=== PATIENT | female | born 1950 | race American Indian/Alaskan Native ===

== ENCOUNTER 2017-04-01 11:29 | Emergency (ER) | payer OTHER ==
[2017-04-01 12:12] VITALS: BP 155/96
--- NOTE | 2017-04-01 12:13 | Emergency Department Report ---
Chief Complaint: Extremity Injury, Lower Stated Complaint: SIDE/LEG PAIN Time Seen by Provider: 04/01/17 12:04 - HPI History of Present Illness: PT c/o pain from her R hip that radiates down her leg. onset, Saturday. PT states she felt a knot on her leg. PT states she called a nurse line and was told to go to the ED for possible appendicitis. - ROS Review of Systems: - abd pain -n/v - fever - Exam Physical Exam: abd is soft and non tender. R calf not ttp MSE screening note: Focused history and physical exam performed. Due to findings the following was ordered: ED Disposition for MSE Condition: Stable
--- NOTE | 2017-04-01 13:13 | Emergency Department Report ---
ED Extremity Problem HPI - General Chief complaint: Extremity Injury, Lower Stated complaint: SIDE/LEG PAIN Time Seen by Provider: 04/01/17 12:04 Source: patient Mode of arrival: Wheelchair Limitations: No Limitations, Physical Limitation - History of Present Illness Initial comments: Patient reports pain in the right hip that radiates down the right leg with cramps. Also, complains of lower right leg pain not aggravated by anything in particular that started two days ago Complaint: extremity pain (right hip and lower leg) Onset/Timin -: days(s) Location: left, lower extremity History of Same: No -: Yes arthralgia Radiation: proximal Severity scale (0 -10): 10 Quality: aching Consistency: constant Improves with: nothing Worsens with: weight bearing, walking, exertion, rest Associated Symptoms: denies other symptoms. denies: chest pain, shortness of breath, fever, myalgias, arthralgias - Related Data Previous Rx's Medication Instructions Recorded Last Taken Type Gabapentin [Neurontin] 100 mg PO Q8HR #15 capsule 04/01/17 Unknown Rx Ibuprofen [Motrin 600 MG tab] 600 mg PO Q8H PRN #30 tablet 04/01/17 Unknown Rx Allergies Allergy/AdvReac Type Severity Reaction Status Date / Time No Known Allergies Allergy Unverified 04/01/17 12:08 ED Review of Systems ROS: Stated complaint: SIDE/LEG PAIN Other details as noted in HPI Constitutional: denies: chills, diaphoresis, fever, malaise, weakness Eyes: denies: eye pain ENT: denies: ear pain, throat pain Respiratory: denies: cough, orthopnea, shortness of breath, SOB with exertion, SOB at rest, stridor, wheezing Cardiovascular: denies: chest pain, palpitations, dyspnea on exertion, orthopnea , edema, syncope, paroxysmal nocturnal dyspnea Gastrointestinal: denies: abdominal pain, nausea, vomiting, diarrhea, constipation Musculoskeletal: arthralgia (right hip and lower leg). denies: back pain, joint swelling, myalgia Skin: denies: rash, lesions, change in color, change in hair/nails, pruritus Neurological: denies: headache, weakness, numbness, paresthesias, confusion Psychiatric: denies: anxiety, depression Hematological/Lymphatic: denies: easy bleeding ED Past Medical Hx - Past Medical History Hx Hypertension: Yes Hx Kidney Stones: Yes - Surgical History Past Surgical History?: No - Social History Smoking Status: Never Smoker Substance Use Type: Alcohol - Medications Home Medications: Home Medications Medication Instructions Recorded Confirmed Last Taken Type Gabapentin [Neurontin] 100 mg PO Q8HR #15 capsule 04/01/17 Unknown Rx Ibuprofen [Motrin 600 MG tab] 600 mg PO Q8H PRN #30 tablet 04/01/17 Unknown Rx ED Physical Exam - General Limitations: No Limitations, Physical Limitation General appearance: alert, in no apparent distress - Head Head exam: Present: atraumatic, normocephalic, normal inspection - ENT ENT exam: Present: normal exam, normal orophraynx, mucous membranes moist. Absent: mucous membranes dry - Neck Neck exam: Present: normal inspection, full ROM. Absent: tenderness, meningismus, lymphadenopathy, thyromegaly - Respiratory Respiratory exam: Present: normal lung sounds bilaterally. Absent: respiratory distress, wheezes, rales, rhonchi, stridor, chest wall tenderness, accessory muscle use, decreased breath sounds, prolonged expiratory - Cardiovascular Cardiovascular Exam: Present: regular rate, normal rhythm, normal heart sounds. Absent: systolic murmur, diastolic murmur, rubs, gallop - GI/Abdominal GI/Abdominal exam: Present: soft, normal bowel sounds. Absent: distended, tenderness, guarding, rebound, rigid - Extremities Exam Extremities exam: Present: normal inspection, full ROM, normal capillary refill. Absent: tenderness, pedal edema, joint swelling - Expanded Lower Extremity Exam Right Hip exam: Present: normal inspection, full ROM. Absent: tenderness, swelling, abrasion, laceration, ecchymosis, deformity, crepidus, dislocation, erythema, external rotation, internal rotation, shortening, pelvic stability Upper Leg exam: Present: normal inspection, full ROM. Absent: tenderness, swelling Knee exam: Present: normal inspection, full ROM, full knee extension. Absent: tenderness, swelling, abrasion, laceration, ecchymosis, deformity, crepidus, pain w/ pronation/supination, posterior draw sign, pain/laxity with valgus, pain /laxity with varus Lower Leg exam: Present: full ROM, tenderness. Absent: swelling, abrasion, laceration, ecchymosis, deformity, crepidus, dislocation, erythema, palpable cord, Génesis's sign Ankle exam: Present: normal inspection, full ROM. Absent: tenderness, swelling , abrasion, laceration, ecchymosis, deformity Foot/Toe exam: Present: normal inspection, full ROM. Absent: tenderness, swelling, abrasion, laceration, ecchymosis, deformity, crepidus, dislocation, erythema, amputation, puncture wound, foreign body, calcaneal tenderness, tenderness at base of 5th metatarsal, nail avulsion Neuro vascular tendon exam: Present: no vascular compromise, significant pain with passive ROM of distal joint. Absent: pulse deficit, abnormal cap refill, motor deficit, sensory deficit, tendon deficit, extremity cold to touch, pallor , abnormal 2-point discrimination, decreased fine/light touch, foot drop, peroneal nerve deficit Gait: Positive: observed and normal - Back Exam Back exam: Present: normal inspection, full ROM. Absent: CVA tenderness (R), CVA tenderness (L) - Neurological Exam Neurological exam: Present: alert, oriented X3, CN II-XII intact, normal gait, reflexes normal. Absent: motor sensory deficit - Psychiatric Psychiatric exam: Present: normal affect, normal mood. Absent: depressed, agitated - Skin Skin exam: Present: warm, dry, intact, normal color. Absent: rash ED Course Vital Signs 04/01/17 12:09 Temperature 98.7 F Pulse Rate 76 Respiratory 16 Rate Blood Pressure 155/96 O2 Sat by Pulse 97 Oximetry - Reevaluation(s) Reevaluation #1: 04/01/17 14:44 laboratory and radiology studies ordered ED Medical Decision Making - Lab Data Result diagrams: 04/01/17 13:55 04/01/17 13:55 Vital Signs 04/01/17 12:09 Temperature 98.7 F Pulse Rate 76 Respiratory 16 Rate Blood Pressure 155/96 O2 Sat by Pulse 97 Oximetry Lab Results 04/01/17 04/01/17 Range/Units 13:55 13:55 WBC 5.6 (4.5-11.0) K/mm3 RBC 4.92 (3.65-5.03) M/mm3 Hgb 13.3 (10.1-14.3) gm/dl Hct 39.8 (30.3-42.9) % MCV 81 (79-97) fl MCH 27 L (28-32) pg MCHC 33 (30-34) % RDW 13.7 (13.2-15.2) % Plt Count 253 (140-440) K/mm3 Lymph % (Auto) 33.5 (13.4-35.0) % [place] % (Auto) 5.5 (0.0-7.3) % Eos % (Auto) 1.1 (0.0-4.3) % Baso % (Auto) 0.4 (0.0-1.8) % Lymph # 1.9 (1.2-5.4) K/mm3 [place] # 0.3 (0.0-0.8) K/mm3 Eos # 0.1 (0.0-0.4) K/mm3 Baso # 0.0 (0.0-0.1) K/mm3 Seg Neutrophils % 59.5 (40.0-70.0) % Seg Neutrophils # 3.3 (1.8-7.7) K/mm3 Sodium 142 (137-145) mmol/L Potassium 3.7 (3.6-5.0) mmol/L Chloride 100.5 (98-107) mmol/L Carbon Dioxide 29 (22-30) mmol/L Anion Gap 16 mmol/L BUN 10 (7-17) mg/dL Creatinine 0.6 L (0.7-1.2) mg/dL Estimated GFR > 60 ml/min BUN/Creatinine Ratio 16.66 % Glucose 91 (65-100) mg/dL Calcium 9.4 (8.4-10.2) mg/dL Total Bilirubin 0.60 (0.1-1.2) mg/dL AST 13 (5-40) units/L ALT 15 (7-56) units/L Alkaline Phosphatase 67 (35-129) units/L Total Protein 7.2 (6.3-8.2) g/dL Albumin 4.2 (3.9-5) g/dL Albumin/Globulin Ratio 1.4 % - Radiology Data Radiology results: image reviewed VASCULAR LAB PRELIMINARY REPORT RLE ARTERIAL DOPPLER COMPLETED PHASIC WAVEFORMS NOTED THROUGH OUT RLE RLE INFORMATION ASSISTANT 76 CM/S STEVE 69 CM/S LLE INFORMATION ASSISTANT 78 CM/S STEVE 44 CM/S - Medical Decision Making During the course of ED, laboratory and radiology studies were ordered. The imaging study was negative for DVT. Patient was sent home with prescriptions for Ibuprofen and Gabapentin, instructed to follow up with her PCP this week , she verbalized understanding - Differential Diagnosis Back Pain with sciatica, Right DVT Critical care attestation.: If time is entered above; I have spent that time in minutes in the direct care of this critically ill patient, excluding procedure time. ED Disposition Clinical Impression: Back pain Qualifiers: Back pain location: low back pain Chronicity: acute Back pain laterality: right Sciatica presence: with sciatica Sciatica laterality: sciatica of right side Qualified Code(s): M54.41 - Lumbago with sciatica, right side Disposition: - TO HOME OR SELFCARE Is pt being admited?: No Does the pt Need Aspirin: No Condition: Stable Instructions: Back Pain (ED) Additional Instructions: Take medication as directed. Follow up with your PCP this week Prescriptions: Gabapentin [Neurontin] 100 mg PO Q8HR #15 capsule Ibuprofen [Motrin 600 MG tab] 600 mg PO Q8H PRN #30 tablet PRN Reason: Pain Referrals: PRIMARY CARE, [Primary Care Provider] - 3-5 Days Time of Disposition: 15:25
[2017-04-01 14:08] LABS: Basophils % (Auto) 0.4 % (0.0-1.8); Eosinophils % (Auto) 1.1 % (0.0-4.3); Hematocrit 39.8 % (30.3-42.9); Hemoglobin 13.3 gm/dl (10.1-14.3); Mean Corpuscular HGB Conc 33 % (30-34); Mean Corpuscular Hemoglobin 27 pg (28-32); Mean Corpuscular Volume 81 fl (79-97); Platelet Count 253 K/mm3 (140-440); Red Blood Count 4.92 M/mm3 (3.65-5.03); Red Cell Distribution Width 13.7 % (13.2-15.2); White Blood Count 5.6 K/mm3 (4.5-11.0)
[2017-04-01 14:25] LABS: Alanine Aminotransferase 15 units/L (7-56); Albumin 4.2 g/dL (3.9-5); Albumin/Globulin Ratio 1.4 %; Alkaline Phosphatase 67 units/L (35-129); Anion Gap 16 mmol/L; BUN/Creatinine Ratio 16.66; Blood Urea Nitrogen 10 mg/dL (7-17); Calcium 9.4 mg/dL (8.4-10.2); Carbon Dioxide 29 mmol/L (22-30); Chloride 100.5 mmol/L (98-107); Glucose 91 mg/dL (65-100); Potassium 3.7 mmol/L (3.6-5.0); Sodium 142 mmol/L (137-145); Total Protein 7.2 g/dL (6.3-8.2)
[2017-04-01] MEDS ORDERED: TORADOL IM ONE (15:29)
--- NOTE | 2017-04-02 09:55 | Vascular Lab Report ---
LOWER EXTREMITY ARTERIAL DUPLEX: REASON FOR EXAM: Right pain. COMMENTS ON THE RIGHT: Biphasic waveforms are seen proximally. Biphasic waveforms are seen distally. No significant velocity gradients are identified. No focal significant plaque is identified. Findings are consistent with normal perfusion. Findings are consistent with the ability to heal distal wounds. IMPRESSION: RIGHT: Essentially normal arterial flow.
== END 2017-04-01 15:44 | disposition home or self-care (01) ==
LOC: ED 11:29
DX: M54.41 Lumbago with sciatica, right side (principal); I10 Essential (primary) hypertension
CPT/HCPCS: 36415; 80053; 85025; 93926; 96372; 99284; J1885